=== PATIENT | male | born 2000 | race Hispanic/Latino ===

== ENCOUNTER 2022-01-21 12:34 | Outpatient (CLI) | payer OTHER | END 2022-01-21 12:35 | disposition home or self-care (01) | LOC: CSHCT 12:34 | PROVIDERS: ATTEND Orthopaedic Surgery | DX: M79.642 Pain in left hand (principal); S62.152A Displaced fracture of hook process of hamate [unciform] bone, left wrist, initial encounter for closed fracture ==